=== PATIENT | male | born 1990 | race Caucasian/White ===

== ENCOUNTER 2022-12-03 22:16 | Emergency (ER) | payer OTHER ==
[~2022-12-03] VITALS: Ht 180.3 cm; Wt 81.6 kg
[2022-12-04] MEDS ORDERED: LORAZEPAM 0.5 MG TABLET ONE (00:58)
[2022-12-04] MEDS ORDERED: LORAZEPAM 0.5 MG TABLET PO ONE (01:00)
[2022-12-04] MEDS ORDERED: CLONIDINE HCL 0.1 MG TABLET PO ONE (01:00)
[2022-12-04] MEDS ORDERED: CLONIDINE HCL 0.1 MG TABLET ONE (01:02)
[2022-12-04] MEDS ORDERED: TRAZ-182 PO (01:07)
[2022-12-04] MEDS ORDERED: HYDR-501 PO (01:07)
[2022-12-04] MEDS ORDERED: CLON-418 PO (01:07)
[2022-12-04 01:18] VITALS: BP 145/78; O2SAT 98
== END 2022-12-04 01:18 | disposition home or self-care (01) ==
LOC: ER 22:20
DX: G47.00 Insomnia, unspecified (principal); F41.9 Anxiety disorder, unspecified; F11.23 Opioid dependence with withdrawal; Z79.899 Other long term (current) drug therapy
CPT/HCPCS: A4663